=== PATIENT | male | born 1955 | race Caucasian/White ===

== ENCOUNTER 2018-01-17 11:11 | Emergency (ER) | payer OTHER ==
[2018-01-17 11:26] VITALS: RESP 18; TEMP 97
[2018-01-17 11:32] VITALS: O2SAT 97
[2018-01-17 12:50] VITALS: BP 150/105; PULSE 67
== END 2018-01-17 13:05 | disposition home or self-care (01) | DRG 123 ==
LOC: ED 11:11 → EDSTATUS 11:11 → ED 13:05
DX: H53.2 Diplopia (principal); S06.5X9A Traumatic subdural hemorrhage with loss of consciousness of unspecified duration, initial encounter; R40.2142 Coma scale, eyes open, spontaneous, at arrival to emergency department
CPT/HCPCS: 70450; 99284

== ENCOUNTER 2019-05-18 11:31 | Emergency (ER) | payer OTHER ==
[2019-05-18 11:42] VITALS: RESP 20; TEMP 98.2; O2SAT 96
[2019-05-18] MEDS ORDERED: ONDANSETRON HCL 4 MG/2 ML SOL IV ONE (11:54)
[2019-05-18] MEDS ORDERED: ACETAMINOPHEN 325 MG PO ONE (11:55)
[2019-05-18] MEDS ORDERED: FENTANYL 100MCG/2ML SOL IV PRN (11:56)
[2019-05-18] MEDS ORDERED: SODIUM CHLORIDE 0.9% 1000ML 1,000 ML IV SCH (12:00)
[2019-05-18 12:04] LABS: BASOPHILS % (AUTO) 0 % (0-3); EOSINOPHILS % (AUTO) 0 % (0-9); HEMATOCRIT 50 % (39-53); LYMPHOCYTES % (AUTO) 5.9 % (10-50); MEAN CORPUSCULAR HEMOGLOBIN 28.6 pg (27.0-32.0); MEAN CORPUSCULAR HGB CONC 32.3 gm/dl (32.0-36.0); MEAN CORPUSCULAR VOLUME 89 fL (80-100); MONOCYTES % (AUTO) 4.8 % (0-12); NEUTROPHILS % (AUTO) 88.8 % (37-80)
[2019-05-18] MEDS ORDERED: ONDANSETRON HCL 4 MG/2 ML SOL ONE (12:10)
[2019-05-18] MEDS ORDERED: FENTANYL 100MCG/2ML SOL ONE (12:10)
[2019-05-18 12:22] LABS: ALBUMIN 3.9 gm/dl (3.4-5.0); BILIRUBIN,DIRECT 1.3 mg/dl (0.0-0.2); BILIRUBIN,TOTAL 2.2 mg/dl (0.2-1.0); CALCIUM 8.6 mg/dl (8.5-10.1); CARBON DIOXIDE 29.7 mEq/L (21-32); CREATININE 1.1 mg/dl (0.80-1.30); TOTAL PROTEIN 7.6 gm/dl (6.4-8.2)
[2019-05-18 14:02] VITALS: BP 167/104; PULSE 60
== END 2019-05-18 13:49 | disposition home or self-care (01) | DRG 392 ==
LOC: ED 11:31
DX: R11.2 Nausea with vomiting, unspecified (principal); K29.70 Gastritis, unspecified, without bleeding; R94.5 Abnormal results of liver function studies; K76.9 Liver disease, unspecified; N18.9 Chronic kidney disease, unspecified
CPT/HCPCS: 36415; 74177; 80048; 80076; 83690; 85025; 85610; 85730; 96365; 96374; 96375; 99284; 99285; J2405; J3010; Q9967